=== PATIENT | male | born 1950 | race Two or more races ===

== ENCOUNTER 2021-09-26 21:14 | Outpatient (CLI) | payer MEDICARE, OTHER | END 2021-09-26 21:15 | disposition short-term general hospital (02) | LOC: EMS 21:14 | DX: R53.83 Other fatigue (principal); R50.9 Fever, unspecified; I10 Essential (primary) hypertension; Z96.0 Presence of urogenital implants | CPT/HCPCS: A0425; A0427 ==

== ENCOUNTER 2022-04-13 20:20 | Outpatient (CLI) | payer MEDICARE, OTHER | END 2022-04-13 20:21 | disposition short-term general hospital (02) | LOC: EMS 20:20 | DX: R06.03 Acute respiratory distress (principal) | CPT/HCPCS: A0425; A0427 ==